=== PATIENT | female | born 1975 | race Caucasian/White ===

== ENCOUNTER 2021-02-17 21:46 | Inpatient (IN) | payer BC ==
[2021-02-17] MEDS ORDERED: MAG HYDROX/AL HYDROX/SIMETH 30 ML UNIT-DOSE CUP PO ONE (23:15)
[2021-02-17] MEDS ORDERED: FAMOTIDINE 20 MG/50 ML IVPB 20 MG/50 ML MG IVPB ONE (23:15)
[2021-02-17] MEDS ORDERED: LACTATED RINGERS SOLUTION 1000 ML INFUS.BAG IV ONE (23:16)
[2021-02-17] MEDS ORDERED: ACETAMINOPHEN 1000 MG/100 ML VIAL (NON FORMULARY) IVPB ONE (23:19)
[2021-02-17] MEDS ORDERED: SODIUM CHLORIDE 0.9% 500 ML INFUS.BAG IV ONE (23:25)
[2021-02-17 23:26] LABS: BASO % 0.3 % (0-2.0); EOS % 0.3 % (0-4.5); HEMATOCRIT 41.1 % (32.4-45.2); HEMOGLOBIN 14.1 GM/dL (10.7-15.3); LYMPH % 12.8 % (8-40); MCH 33.1 pg (25.7-33.7); MCHC 34.3 g/dl (32.0-36.0); MEAN CELL VOLUME 96.5 fl (80-96); MEAN PLT VOLUME 8.4 fl (7.5-11.1); MONO % 4.7 % (3.8-10.2); NEUT % 81.9 % (42.8-82.8); PLATELET COUNT 254 K/MM3 (134-434); RBC 4.26 M/mm3 (3.60-5.2); RDW 12.7 % (11.6-15.6); WHITE BLOOD COUNT 9.5 K/mm3 (4.0-10.0)
[2021-02-17 23:47] LABS: ALBUMIN 4.1 g/dl (3.4-5.0); CALCIUM 8.5 mg/dL (8.5-10.1)
[2021-02-17 23:48] LABS: BLOOD UREA NITROGEN 12.4 mg/dL (7-18)
[2021-02-17 23:51] LABS: CREATININE 0.7 mg/dL (0.55-1.3)
[2021-02-17 23:52] LABS: BILIRUBIN,TOTAL 0.9 mg/dL (0.2-1); TOT PROT 7.1 g/dl (6.4-8.2)
[2021-02-18] MEDS ORDERED: LACTATED RINGERS SOLUTION 1000 ML INFUS.BAG IV ONE (00:44)
[2021-02-18] MEDS ORDERED: morphine CARPU-JECT 2 MG/1 ML DISP.SYRIN IVPUSH ONE (00:46)
[2021-02-18] MEDS ORDERED: SODIUM CHLORIDE 0.9% 500 ML INFUS.BAG IV ONE (00:47)
[2021-02-18] MEDS ORDERED: morphine SULFATE 4 MG/ML VIAL ONE (00:49)
[2021-02-18] MEDS ORDERED: HYDROmorphone HCl 2 MG/ML VIAL ONE ×3 (03:25→14:06)
[2021-02-18] MEDS ORDERED: HYDROmorphone HCL CARPU-JECT 2 MG/1 ML DISP.SYRIN IVPUSH ONE (03:25)
[2021-02-18 04:05] LABS: EPI CELLS 8 /uL (0-25.1); HYALINE CASTS 1 /uL (0-3.1); URINE APPEARANCE CLEAR; URINE BACTERIA 125 /uL (0-1359); URINE BILIRUBIN NEGATIVE (NEGATIVE); URINE COLOR YELLOW; URINE GLUCOSE (UA) NEGATIVE (NEGATIVE); URINE KETONE TRACE (NEGATIVE); URINE LEUK ESTERASE NEGATIVE (NEGATIVE); URINE NITRITE NEGATIVE (NEGATIVE); URINE PROTEIN 1+ (NEGATIVE); URINE RBC 5 /uL (0-23.9); URINE UROBILINOGEN 0.2 mg/dL (0.2-1.0); URINE WBC 8 /uL (0-25.8)
[2021-02-18] MEDS ORDERED: LACTATED RINGERS SOLUTION 1,000 ML IV SCH (05:15)
[2021-02-18] MEDS: HYDROmorphone HCl 2 MG/ML VIAL IVPUSH PRN ×2 (08:00→14:30)
[2021-02-18] MEDS: LACTATED RINGERS SOLUTION 1,000 ML IV SCH ×2 (09:30→16:59)
[2021-02-18 09:40] LABS: BASO % 0.1 % (0-2.0); HEMATOCRIT 37.4 % (32.4-45.2); HEMOGLOBIN 12.7 GM/dL (10.7-15.3); LYMPH % 7.2 % (8-40); MCH 33.1 pg (25.7-33.7); MCHC 34.1 g/dl (32.0-36.0); MEAN CELL VOLUME 97.2 fl (80-96); MEAN PLT VOLUME 8.4 fl (7.5-11.1); MONO % 5.4 % (3.8-10.2); NEUT % 87.3 % (42.8-82.8); PLATELET COUNT 245 K/MM3 (134-434); RBC 3.85 M/mm3 (3.60-5.2); RDW 12.8 % (11.6-15.6)
[2021-02-18 09:52] LABS: INR 1.06 (0.83-1.09); PROTHROMBIN TIME (PATIENT) 12.8 SEC (9.7-13.0)
[2021-02-18] MEDS ORDERED: ENOXAPARIN NA (PORCINE) 40 MG/0.4 ML DISP.SYRIN SQ SCH (10:00)
[2021-02-18 10:04] LABS: BLOOD UREA NITROGEN 7.7 mg/dL (7-18); CALCIUM 7.7 mg/dL (8.5-10.1)
[2021-02-18 10:05] LABS: MAGNESIUM 1.8 mg/dL (1.8-2.4)
[2021-02-18 10:06] LABS: CHOLESTEROL 123 mg/dL (50-200); TRIGLYCERIDES 23 mg/dL (0-150)
[2021-02-18 10:07] LABS: CREATININE 0.5 mg/dL (0.55-1.3); PHOSPHOROUS 2.6 mg/dL (2.5-4.9)
[2021-02-18 10:09] LABS: LDL CHOLESTEROL (ONLY SJRH) 41 mg/dL (5-100)
[2021-02-18 10:10] LABS: HDL CHOLESTEROL 65 mg/dL (40-60)
[2021-02-18] MEDS: PANTOPRAZOLE SODIUM 40 MG VIAL IVPUSH SCH ×2 (14:31→22:44)
[2021-02-18] MEDS ORDERED: PANTOPRAZOLE SODIUM 40 MG VIAL ONE (14:36)
[2021-02-18] MEDS: MORPHINE SULFATE 2 MG/ML VIAL IVPUSH PRN ×2 (18:15→22:20)
[2021-02-19] MEDS ORDERED: morphine SULFATE 4 MG/ML VIAL IVPUSH ONE (01:25)
[2021-02-19] MEDS: MORPHINE SULFATE 2 MG/ML VIAL IVPUSH PRN ×5 (04:47→21:42)
[2021-02-19] MEDS: LACTATED RINGERS SOLUTION 1,000 ML IV SCH ×4 (04:51→23:54)
[2021-02-19 08:51] LABS: HEMATOCRIT 36.3 % (32.4-45.2); HEMOGLOBIN 12.3 GM/dL (10.7-15.3); MCH 33.3 pg (25.7-33.7); MEAN CELL VOLUME 97.9 fl (80-96); MEAN PLT VOLUME 8.7 fl (7.5-11.1); PLATELET COUNT 200 K/MM3 (134-434); RBC 3.71 M/mm3 (3.60-5.2); RDW 13.1 % (11.6-15.6); WHITE BLOOD COUNT 12.6 K/mm3 (4.0-10.0)
[2021-02-19 09:18] LABS: CALCIUM 7.6 mg/dL (8.5-10.1)
[2021-02-19 09:20] LABS: CREATININE 0.4 mg/dL (0.55-1.3)
[2021-02-19 09:22] LABS: PHOSPHOROUS 1.8 mg/dL (2.5-4.9)
[2021-02-19 09:23] LABS: BILIRUBIN,TOTAL 0.6 mg/dL (0.2-1); TOT PROT 5.6 g/dl (6.4-8.2)
[2021-02-19 09:28] LABS: MAGNESIUM 1.8 mg/dL (1.8-2.4)
[2021-02-19 09:33] LABS: BLOOD UREA NITROGEN 4.4 mg/dL (7-18)
[2021-02-19] MEDS: PANTOPRAZOLE SODIUM 40 MG VIAL IVPUSH SCH ×2 (10:00→21:43)
[2021-02-19] MEDS ORDERED: POTASSIUM PHOSPHATE 30 MM in SODIUM CHLORIDE 500 ML IVPB ONE (11:00)
[2021-02-20] MEDS: MORPHINE SULFATE 2 MG/ML VIAL IVPUSH PRN ×2 (01:28→09:28)
[2021-02-20] MEDS: LACTATED RINGERS SOLUTION 1,000 ML IV SCH ×2 (05:03→10:23)
[2021-02-20 09:06] LABS: BASO % 0.2 % (0-2.0); EOS % 0.2 % (0-4.5); HEMATOCRIT 37.7 % (32.4-45.2); HEMOGLOBIN 12.8 GM/dL (10.7-15.3); LYMPH % 7.9 % (8-40); MCH 32.8 pg (25.7-33.7); MEAN CELL VOLUME 96.4 fl (80-96); MEAN PLT VOLUME 8.6 fl (7.5-11.1); MONO % 6.6 % (3.8-10.2); NEUT % 85.1 % (42.8-82.8); PLATELET COUNT 234 K/MM3 (134-434); RBC 3.91 M/mm3 (3.60-5.2); WHITE BLOOD COUNT 16.4 K/mm3 (4.0-10.0)
[2021-02-20 09:26] LABS: ALBUMIN 2.9 g/dl (3.4-5.0); BLOOD UREA NITROGEN 5.2 mg/dL (7-18); MAGNESIUM 1.8 mg/dL (1.8-2.4)
[2021-02-20 09:29] LABS: CREATININE 0.4 mg/dL (0.55-1.3)
[2021-02-20] MEDS: PANTOPRAZOLE SODIUM 40 MG VIAL IVPUSH SCH (09:29)
[2021-02-20 09:30] LABS: BILIRUBIN,TOTAL 0.8 mg/dL (0.2-1); TOT PROT 5.8 g/dl (6.4-8.2)
[2021-02-20] MEDS ORDERED: MORPHINE SULFATE 2 MG/ML VIAL IVPUSH PRN (10:35)
[2021-02-20] MEDS ORDERED: IBUPROFEN 400 MG TABLET (FP) PO PRN (10:36)
[2021-02-20] MEDS ORDERED: PIPERACILLIN/TAZOB 3.375 GM 3.375 GM in DEXTROSE 5%-WATER - 50 ML IVPB ONE (11:07)
[2021-02-20] MEDS ORDERED: LACTATED RINGERS SOLUTION 1,000 ML IV SCH ×2 (11:09→13:42)
[2021-02-20] MEDS ORDERED: PIPERACILLIN/TAZOBACTAM 3.375 GM VIAL IVPB ONE ×2 (13:16→17:13)
[2021-02-20] MEDS ORDERED: DEXTROSE 5%-WATER - 50 ML IVPB ONE ×2 (13:16→17:14)
[2021-02-20 13:33] VITALS: BMI 29.4
[2021-02-20] MEDS: PIPERACILLIN/TAZOB 3.375 GM 3.375 GM in DEXTROSE 5%-WATER - 50 ML IVPB SCH (17:32)
[2021-02-21] MEDS ORDERED: MELATONIN 5 MG TABLETS PO ONE ×2 (01:05→22:42)
[2021-02-21] MEDS ORDERED: DEXTROSE 5%-WATER - 50 ML IVPB ONE ×3 (01:13→17:10)
[2021-02-21] MEDS ORDERED: PIPERACILLIN/TAZOBACTAM 3.375 GM VIAL IVPB ONE ×3 (01:13→17:10)
[2021-02-21] MEDS: PIPERACILLIN/TAZOB 3.375 GM 3.375 GM in DEXTROSE 5%-WATER - 50 ML IVPB SCH ×3 (02:22→17:40)
[2021-02-21 09:05] LABS: BASO % 0.3 % (0-2.0); EOS % 0.2 % (0-4.5); HEMATOCRIT 34.7 % (32.4-45.2); LYMPH % 6.1 % (8-40); MCH 32.8 pg (25.7-33.7); MCHC 34.5 g/dl (32.0-36.0); MEAN CELL VOLUME 95.2 fl (80-96); MEAN PLT VOLUME 8.9 fl (7.5-11.1); MONO % 7.3 % (3.8-10.2); NEUT % 86.1 % (42.8-82.8); PLATELET COUNT 214 K/MM3 (134-434); RBC 3.65 M/mm3 (3.60-5.2); RDW 12.7 % (11.6-15.6); WHITE BLOOD COUNT 13.9 K/mm3 (4.0-10.0)
[2021-02-21 09:24] LABS: ALBUMIN 2.5 g/dl (3.4-5.0); BLOOD UREA NITROGEN 3.6 mg/dL (7-18); CALCIUM 7.9 mg/dL (8.5-10.1)
[2021-02-21 09:27] LABS: CREATININE 0.4 mg/dL (0.55-1.3)
[2021-02-21 09:29] LABS: BILIRUBIN,TOTAL 0.6 mg/dL (0.2-1); TOT PROT 5.4 g/dl (6.4-8.2)
[2021-02-21] MEDS: LACTATED RINGERS SOLUTION 1,000 ML IV SCH ×2 (17:40→22:52)
[2021-02-22] MEDS ORDERED: DEXTROSE 5%-WATER - 50 ML IVPB ONE ×3 (01:40→18:31)
[2021-02-22] MEDS ORDERED: PIPERACILLIN/TAZOBACTAM 3.375 GM VIAL IVPB ONE ×3 (01:40→18:31)
[2021-02-22] MEDS: PIPERACILLIN/TAZOB 3.375 GM 3.375 GM in DEXTROSE 5%-WATER - 50 ML IVPB SCH ×3 (02:00→19:06)
[2021-02-22 08:02] LABS: BASO % 0.2 % (0-2.0); EOS % 0.6 % (0-4.5); HEMATOCRIT 36.5 % (32.4-45.2); HEMOGLOBIN 12.7 GM/dL (10.7-15.3); LYMPH % 9.4 % (8-40); MCH 33.2 pg (25.7-33.7); MCHC 34.8 g/dl (32.0-36.0); MEAN CELL VOLUME 95.4 fl (80-96); MONO % 8.6 % (3.8-10.2); NEUT % 81.2 % (42.8-82.8); PLATELET COUNT 261 K/MM3 (134-434); RBC 3.83 M/mm3 (3.60-5.2); RDW 12.7 % (11.6-15.6); WHITE BLOOD COUNT 12.9 K/mm3 (4.0-10.0)
[2021-02-22 08:20] LABS: CALCIUM 8.2 mg/dL (8.5-10.1)
[2021-02-22 08:21] LABS: BLOOD UREA NITROGEN 3.8 mg/dL (7-18)
[2021-02-22 08:24] LABS: CREATININE 0.5 mg/dL (0.55-1.3)
[2021-02-22] MEDS ORDERED: POTASSIUM CHLORIDE TABS 20 MEQ TABLET.ER (FP) PO ONE (09:15)
[2021-02-22] MEDS: LACTATED RINGERS SOLUTION 1,000 ML IV SCH ×3 (10:20→23:43)
[2021-02-23] MEDS ORDERED: PIPERACILLIN/TAZOBACTAM 3.375 GM VIAL IVPB ONE ×2 (00:51→10:16)
[2021-02-23] MEDS ORDERED: DEXTROSE 5%-WATER - 50 ML IVPB ONE ×2 (00:51→10:16)
[2021-02-23] MEDS: PIPERACILLIN/TAZOB 3.375 GM 3.375 GM in DEXTROSE 5%-WATER - 50 ML IVPB SCH ×2 (01:10→10:25)
[2021-02-23] MEDS ORDERED: MELATONIN 5 MG TABLETS PO ONE (01:27)
[2021-02-23 11:13] LABS: BASO % 0.3 % (0-2.0); EOS % 0.8 % (0-4.5); HEMATOCRIT 34.6 % (32.4-45.2); LYMPH % 9.3 % (8-40); MCH 32.8 pg (25.7-33.7); MCHC 34.7 g/dl (32.0-36.0); MEAN CELL VOLUME 94.6 fl (80-96); MEAN PLT VOLUME 8.4 fl (7.5-11.1); MONO % 10.3 % (3.8-10.2); NEUT % 79.3 % (42.8-82.8); PLATELET COUNT 267 K/MM3 (134-434); RBC 3.66 M/mm3 (3.60-5.2); RDW 12.7 % (11.6-15.6)
[2021-02-23 11:26] LABS: CALCIUM 8.4 mg/dL (8.5-10.1)
[2021-02-23 11:27] LABS: BLOOD UREA NITROGEN 3.7 mg/dL (7-18)
[2021-02-23 11:30] LABS: CREATININE 0.4 mg/dL (0.55-1.3)
[2021-02-23 13:04] VITALS: BP 129/78; PULSE 91; TEMP 98.4
== END 2021-02-23 14:39 | disposition home or self-care (01) | DRG 439 ==
LOC: JER 21:46 → JERBED 02-18 03:36 → J8W 02-18 16:10
PROVIDERS: ADMIT Internal Medicine; ATTEND Student in an Organized Health Care Education/Training Program
DX: K85.10 Biliary acute pancreatitis without necrosis or infection (principal); J90 Pleural effusion, not elsewhere classified; E66.9 Obesity, unspecified; Z68.29 Body mass index [BMI] 29.0-29.9, adult; R00.1 Bradycardia, unspecified; K76.0 Fatty (change of) liver, not elsewhere classified; F10.20 Alcohol dependence, uncomplicated; J45.909 Unspecified asthma, uncomplicated; R94.5 Abnormal results of liver function studies; K82.8 Other specified diseases of gallbladder; E86.0 Dehydration; R11.10 Vomiting, unspecified
CPT/HCPCS: 36415; 71045-TC-FY; 74160-TC; 74177-TC; 74181-TC; 76705-TC; 80048; 80053; 80061; 80074; 81003; 82550; 82553; 82728; 83516; 83550; 83690; 83721; 83735; 84100; 84478; 84484; 84703; 85025; 85027; 85610; 86140; 87040; 87086; 93005; 93010; 99285-25; C9803; J0131; Q9967; U0003; U0005

== ENCOUNTER 2021-09-16 04:51 | Day surgery (SDC) | payer BC ==
[2021-09-15 08:38] VITALS: BMI 27.4
[~2021-09-16 04:51] MED LIST: BUPIVACAINE HCL/PF 0.5% (5MG/ML) 10 ML VIAL IJ ONE
[2021-09-16] MEDS ORDERED: BUPIVACAINE HCL/PF 0.5% (5MG/ML) 10 ML VIAL ONE (09:53)
[2021-09-16] MEDS ORDERED: MIDAZOLAM HCL 2 MG/2 ML SINGLE DOSE VIAL ONE (09:59)
[2021-09-16] MEDS ORDERED: ONDANSETRON 4 MG/2 ML VIAL ONE (09:59)
[2021-09-16] MEDS ORDERED: KETOROLAC TROMETHAMINE 30 MG/1 ML VIAL ONE (09:59)
[2021-09-16] MEDS ORDERED: ceFAZolin SODIUM 1 GM VIAL ONE (09:59)
[2021-09-16] MEDS ORDERED: fentaNYL CITRATE 250 MCG/5 ML VIAL ONE (09:59)
[2021-09-16] MEDS ORDERED: PROPOFOL 20 ML ONE ×2 (09:59)
[2021-09-16] MEDS ORDERED: ROCURONIUM BROMIDE 100 MG/10 ML VIAL ONE (09:59)
[2021-09-16] MEDS ORDERED: DEXAMETHASONE SOD PHOSPHATE 4 MG/1 ML VIAL ONE (09:59)
[2021-09-16] MEDS ORDERED: ceFAZolin SODIUM 1 GM VIAL IVPB ONE (10:11)
[2021-09-16] MEDS ORDERED: NEOSTIGMINE METHYLSULFATE 0.5 MG/ML - 10 ML MDV ONE (11:06)
[2021-09-16] MEDS ORDERED: GLYCOPYRROLATE 0.2 MG/1 ML VIAL ONE ×2 (11:06→11:07)
[2021-09-16] MEDS ORDERED: BENZOIN/ALOE VERA/STORAX/TOLU 58 ML BOTTLE ONE (11:15)
[2021-09-16] MEDS ORDERED: BUPIVACAINE HCL/PF 0.5% (5MG/ML) 10 ML VIAL IJ ONE (11:20)
[2021-09-16] MEDS ORDERED: oxyCODONE HCL 5 MG TABLET PO PRN (11:30)
[2021-09-16] MEDS ORDERED: PROMETHAZINE HCL 25 MG/1 ML VIAL IVPUSH PRN (11:30)
[2021-09-16] MEDS ORDERED: ONDANSETRON 4 MG/2 ML VIAL IVPUSH PRN (11:30)
[2021-09-16 13:40] VITALS: BP 121/75; PULSE 83; TEMP 98.1
== END 2021-09-16 13:40 | disposition home or self-care (01) ==
LOC: JASU-SURG 04:51
PROVIDERS: ATTEND Surgery
PROC: 0FT44ZZ Resection of Gallbladder, Percutaneous Endoscopic Approach (ICD-10-PCS; principal; 2021-09-16 09:00)
DX: K80.20 Calculus of gallbladder without cholecystitis without obstruction (principal); K85.10 Biliary acute pancreatitis without necrosis or infection
CPT/HCPCS: 81025; 88304-TC; 94760